=== PATIENT | male | born 1960 | race Caucasian/White ===

== ENCOUNTER 2024-11-05 18:31 | Emergency (ER) | payer MEDICARE, OTHER, SELFPAY ==
[2024-11-05 18:42] VITALS: BP 119/79; PULSE 90; RESP 16; TEMP 36.6; O2SAT 98; BMI 27.3
--- NOTE | 2024-11-05 19:59 | ED_ITS ---
HPI - Extremity Problem General Chief complaint: Extremity Problem,Nontraumatic Stated complaint: leg swelling and px Time Seen by Provider: 11/05/24 19:01 History of Present Illness HPI Narrative: 64-year-old male with history of insulin-dependent diabetes presents by private vehicle from home for 1 week of atraumatic, painless RLE swelling. finally convinced patient to come in today for evaluation. Denies trauma, long trips, hospitalizations, history of blood clots. Related Data Previous Rx's Medication Instructions Recorded apixaban 5 mg tablet (Eliquis) 5 mg PO BID #60 tabs 11/05/24 Allergies Allergy/AdvReac Type Severity Reaction Status Date / Time No Known Drug Allergies Allergy Verified 11/05/24 20:32 Exam Initial Vital Signs Initial Vital Signs: Vital Signs Temperature 97.9 F 11/05/24 18:42 Pulse Rate 90 11/05/24 18:42 Respiratory Rate 16 11/05/24 18:42 Blood Pressure 119/79 11/05/24 18:42 Pulse Oximetry 98 11/05/24 18:42 Oxygen Delivery Method Room Air 11/05/24 18:42 Const: Awake, alert, no acute distress, nontoxic appearing Cardiac: regular rate, regular rhythm RESP: unlabored, clear bilaterally, no wheezing MSK: RLE larger than LLE, pulses not palpable due to swelling, strong pulses on doppler present Skin: Warm, Dry, intact, no rashes Neuro: AO x3, CN II-XII grossly intact, moves all extremities Course Orders Ordered: ED Orders 11/05/24 20:17 US periph venous low extrem rt Stat 11/05/24 20:30 CBC Auto Diff [Complete Blood Count AUTO DIFF] Stat CMP [Comprehensive Metabolic Panel] Stat Discontinued Medications Apixaban (Apixaban 5 Mg Tablet) 10 mg PO NOW ONE Stop: 11/05/24 21:03 Last Admin: 11/05/24 21:21 Dose: 10 mg Documented By: WHITNEY Vital Signs Vital signs: Vital Signs - 8 hr 11/05/24 18:42 11/05/24 21:45 Temperature 97.9 F Pulse Rate 90 65 Respiratory Rate 16 16 Blood Pressure 119/79 154/74 H Pulse Oximetry 98 98 Oxygen Delivery Method Room Air Room Air MDM - Extremity (Nontraumatic) Differential Diagnosis Differential diagnosis: Likely superficial thrombophlebitis, deep venous thrombosis of upper extremity and lower extremity edema Lab Data 11/05/24 20:30 11/05/24 20:30 Labs: Lab Results 11/05/24 Range/Units 20:30 WBC 9.6 (4.5-11.0) X10^3/uL RBC 5.00 (4.5-5.9) X10^6/uL Hgb 14.8 (13.5-17.5) g/dL Hct 44.0 (41-53) % MCV 88.1 (80-100) fL MCH 29.7 (26-34) PG MCHC 33.7 (30-36) % RDW 13.2 (11.6-14.8) % Plt Count 234 (150-400) X10^3/uL Neut % (Auto) 64.8 (50-75) % Lymph % (Auto) 21.7 L (25-40) % Imperial % (Auto) 9.9 (3-14) % Eos % (Auto) 2.9 (2-4) % Baso % (Auto) 0.7 (0-2) % Neut # (Auto) 6200 (3605-8866) /uL Lymph # (Auto) 2100 (3199-2301) /uL Imperial # (Auto) 1000 H (0-900) /uL Eos # (Auto) 300 (0-450) /uL Baso # (Auto) 100 (0-100) /uL Sodium 130 L (137-145) mmol/L Potassium 4.1 (3.4-5.1) mmol/L Chloride 95 L (98-107) mmol/L Carbon Dioxide 29 (22-32) mmol/L BUN 20 (9-20) mg/dL Creatinine 1.16 (0.66-1.25) mg/dL Estimated GFR > 60 (>60) mL/min BUN/Creatinine Ratio 17.2 (6-22) Glucose 323 H (80-110) mg/dL Calcium 9.7 (8.4-10.2) mg/dL Total Bilirubin 1.0 (0.2-1.3) mg/dL AST 34 (17-59) IU/L ALT 40 (<50) IU/L Alkaline Phosphatase 94 (38-126) U/L Total Protein 7.8 (6.3-8.2) g/dL Albumin 4.2 (3.5-5.0) g/dL Globulin 3.6 (1.7-4.1) g/dL Albumin/Globulin Ratio 1.2 (1.0-2.8) Imaging Data US - DVT: Radiologist's Impression: PROCEDURE: US PERIPH VENOUS LOW EXTREM RT INDICATIONS: RLE swelling TECHNIQUE: Real-time imaging, as well as color and pulse Doppler interrogation, were performed of the lower extremity deep veins from the inguinal ligament to the popliteal fossa, with documentation of the visualized calf veins. COMPARISON: None. FINDINGS: The common femoral, femoral, popliteal, and the visualized calf veins are non compressible, and contain thrombus. Color and pulse Doppler demonstrate normal phasic intraluminal flow. There is normal augmentation response to distal compression maneuver. IMPRESSION: Extensive deep venous thrombosis of the right lower extremity. Dictated by: Magno Banerjee M.D. on 11/05/2024 at 21:14 Approved by: Magno Banerjee M.D. on 11/05/2024 at 21:15 [facility] Narrative Medical decision making narrative: well-appearing patient with 1 week of atraumatic and painless lower extremity swelling. Patient does appear to have significant limb size difference. due to edema pulses not palpable on the right foot, however there easily located with Doppler and strong. Ultrasound shows extensive DVT. Patient given 1st dose of Eliquis in the emergency department and discharged with Eliquis prescription. He was counseled on the importance of PCP follow up since this would be an unprovoked DVT. Signs and symptoms of PE and compartment syndrome discussed with the patient prior to discharge and strict ED return precautions given. Discharge Plan Departure Patient Disposition: Home Clinical Impression: Deep vein thrombosis of lower extremity Instructions: DI for Deep Vein Thrombosis Activity Restrictions/Additional Instructions: You have a large DVT, or blood clot, in your right leg. You have good blood flow to the rest of your leg. You will need to be on blood thinners indefinitely in order to prevent more blood clot from forming. It is extremely important that you follow up with your primary care doctor for further monitoring of this blood clot. If you notice chest pain, shortness of breath, fast heart rate, severe leg pain, or decreased sensation of your leg please return immediately to the emergency department. Prescriptions: New Eliquis 5 mg tablet 5 mg PO BID Qty: 60 0RF Rx Instructions: TAKE 10MG TWICE DAILY FOR THE FIRST SEVEN DAYS. AFTERWARDS TAKE 5MG BY MOUTH TWICE DAILY Referrals: ProviderAbby [Primary Care Provider] - Stand Alone Forms: Patient Portal/API/Survey
--- NOTE | 2024-11-05 20:17 | DI.US.S_ITS ---
PROCEDURE: US PERIPH VENOUS LOW EXTREM RT INDICATIONS: RLE swelling TECHNIQUE: Real-time imaging, as well as color and pulse Doppler interrogation, were performed of the lower extremity deep veins from the inguinal ligament to the popliteal fossa, with documentation of the visualized calf veins. COMPARISON: None. FINDINGS: The common femoral, femoral, popliteal, and the visualized calf veins are non compressible, and contain thrombus. Color and pulse Doppler demonstrate normal phasic intraluminal flow. There is normal augmentation response to distal compression maneuver. IMPRESSION: Extensive deep venous thrombosis of the right lower extremity. Dictated by: Magno Banerjee M.D. on 11/05/2024 at 21:14 Approved by: Magno Banerjee M.D. on 11/05/2024 at 21:15
[2024-11-05 20:39] LABS: Add Manual Diff / Slide Review NO; Basophils Absolute Auto 100 /uL (0-100); Basophils Percent Auto 0.7 % (0-2); Eosinophils Absolute Auto 300 /uL (0-450); Eosinophils Percent Auto 2.9 % (2-4); Hemoglobin 14.8 g/dL (13.5-17.5); Lymphocytes Absolute Auto 2100 /uL (1100-4500); Lymphocytes Percent Auto 21.7 % (25-40); Mean Corpuscular HGB Conc 33.7 % (30-36); Mean Corpuscular Hemoglobin 29.7 PG (26-34); Mean Corpuscular Volume 88.1 fL (80-100); Monocytes Absolute Auto 1000 /uL (0-900); Monocytes Percent Auto 9.9 % (3-14); Neutrophils Absolute Auto 6200 /uL (1500-7000); Neutrophils Percent Auto 64.8 % (50-75); Platelet Count 234 X10^3/uL (150-400); Red Cell Distribution Width 13.2 % (11.6-14.8); White Blood Cell Count 9.6 X10^3/uL (4.5-11.0)
[2024-11-05 20:51] LABS: Alanine Aminotransferase 40 IU/L (<50); Albumin 4.2 g/dL (3.5-5.0); Albumin Globulin Ratio 1.2 (1.0-2.8); Alkaline Phosphatase 94 U/L (38-126); Aspartate Aminotransferase 34 IU/L (17-59); BUN Creatinine Ratio 17.2 (6-22); Blood Urea Nitrogen 20 mg/dL (9-20); Calcium 9.7 mg/dL (8.4-10.2); Carbon Dioxide 29 mmol/L (22-32); Chloride 95 mmol/L (98-107); Estimated Glomerular Filt Rate > 60 mL/min (>60); Globulin 3.6 g/dL (1.7-4.1); Glucose 323 mg/dL (80-110); HEMOLYSIS < 15 (0-50); Potassium 4.1 mmol/L (3.4-5.1); Sodium 130 mmol/L (137-145); Total Protein 7.8 g/dL (6.3-8.2)
[2024-11-05] MEDS: APIXABAN 5 MG TABLET 10 MG PO (21:21)
[2024-11-05 21:45] VITALS: BP 154/74; PULSE 65; RESP 16; O2SAT 98
== END 2024-11-05 21:45 | disposition home or self-care (01) ==
PROVIDERS: Emergency Provider Emergency Medicine
DX: I82.411 Acute embolism and thrombosis of right femoral vein (principal); I82.431 Acute embolism and thrombosis of right popliteal vein; I82.4Z1 Acute embolism and thrombosis of unspecified deep veins of right distal lower extremity
CPT/HCPCS: 80053; 85025; 93971; 99283; 99284